=== PATIENT | female | born 1970 | race Caucasian/White ===

== ENCOUNTER 2021-07-12 08:38 | Emergency (ER) | payer OTHER ==
[~2021-07-12] VITALS: Ht 152.4 cm; Wt 65.8 kg
[2021-07-12 08:42] VITALS: BP 135/67
--- NOTE | 2021-07-12 08:47 | NUR ---
BIBA TO BED 12.
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
--- NOTE | 2021-07-12 10:16 | NUR ---
IRRIGATED WOUNDS ON LEFT ARM, LEFT KNEE, AND RIGHT THIGH WITH STERILE WATER AND IODINE
--- NOTE | 2021-07-12 12:15 | NUR ---
PATIENT'S LEFT ARM WAS PLACED IN A LONG POSTERIOR SPLINT AND SLING. ERMD NOTIFIED.
[2021-07-12] MEDS ORDERED: ALBU0.0912 IH (12:22)
[2021-07-12] MEDS ORDERED: BACTO TP (12:22)
[2021-07-12] MEDS ORDERED: IBUP-1842 PO (12:22)
[2021-07-12 12:47] VITALS: BP 135/67
--- NOTE | 2021-07-12 12:48 | NUR ---
Patient discharged with v/s stable. Written and verbal after care instructions given and explained. Patient alert, oriented and verbalized understanding of instructions. Ambulatory to [facility]. All questions addressed prior to discharge. ID band removed. Patient advised to follow up with PMD. Rx of ibuprofen, albuterol, mupirocin (sent) given. Patient educated on indication of medication including possible reaction and side effects. Opportunity to ask questions provided and answered. copy of radiology given
== END 2021-07-12 12:48 | disposition home or self-care (01) ==
LOC: MED 08:38
DX: S09.90XA Unspecified injury of head, initial encounter (principal); S59.902A Unspecified injury of left elbow, initial encounter; M25.562 Pain in left knee; M25.511 Pain in right shoulder; M54.2 Cervicalgia; Z88.0 Allergy status to penicillin; Z79.899 Other long term (current) drug therapy; V49.49XA Driver injured in collision with other motor vehicles in traffic accident, initial encounter; Y93.89 Activity, other specified; Y92.89 Other specified places as the place of occurrence of the external cause; Y99.8 Other external cause status
CPT/HCPCS: 29105; 70450; 72125; 73030; 73080; 73562; 99284